=== PATIENT | male | born 1970 | race Two or more races ===

== ENCOUNTER 2018-12-14 20:35 | Emergency (ER) | payer SELFPAY ==
[2018-12-14 20:41] VITALS: BMI 38.0
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
[2018-12-14 22:31] LABS: BASO # 0.01 K/mm3 (0.0-2.0); BASO % 0.2 % (0.0-3.0); EOS % 0.2 % (1.5-5.0); HEMOGLOBIN 9.5 g/dL (14.0-18.0); LYMPH # 0.7 (1.2-3.4); MEAN CELL VOLUME 70.2 fl (80.0-105.0); MEAN CORPUSCULAR HEMOGLOBIN 21.9 pg (25.0-35.0); MEAN CORPUSCULAR HGB CONC 31.3 g/dl (31.0-37.0); MEAN PLATELET VOLUME 7.9 fl (7.0-11.0); MONO # 0.4 (0.1-0.6); MONO % 6.7 % (1.0-6.0); RBC 4.33 10^6/uL (3.5-6.1); RED CELL DISTRIBUTION WIDTH 22.7 % (11.5-14.5)
[2018-12-14 22:39] LABS: INR 1.03; PROTHROMBIN TIME 11.4 SECONDS (9.4-12.5)
[2018-12-14 22:41] LABS: ALT/SGPT 17 U/L (7-56); AST/SGOT 90 U/L (17-59); BLOOD UREA NITROGEN 9 mg/dL (7-21); CALCIUM 8.7 mg/dL (8.4-10.5); GFR NON-AFRICAN AMERICAN > 60
[2018-12-14 22:52] LABS: TROPONIN I < 0.01 ng/mL
[2018-12-15 05:19] VITALS: BP 148/85; PULSE 88; RESP 19; TEMP 99.7; O2SAT 99
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
--- NOTE | 2018-12-15 14:19 | RAD ---
Date of service: 12/14/2018 HISTORY: pain COMPARISON: None available. TECHNIQUE: 1 view obtained. FINDINGS: LUNGS: Minor bibasilar atelectasis. PLEURA: No significant pleural effusion identified, no pneumothorax apparent. CARDIOVASCULAR: No aortic atherosclerotic calcification present. Normal cardiac size. No pulmonary vascular congestion. OSSEOUS STRUCTURES: Mild multilevel degenerative osteoarthritis thoracic spine. VISUALIZED UPPER ABDOMEN: Normal. OTHER FINDINGS: None. IMPRESSION: . Minor bibasilar atelectasis
--- NOTE | 2018-12-16 07:17 | CARD ---
APPROVED REPORT Date of service: 12/14/2018 EKG Measurement Heart [id number] <Conclusion> Normal sinus rhythm Normal ECG
== END 2018-12-15 07:16 | disposition home or self-care (01) ==
LOC: ED 20:35 → EDBD 20:35 → ED 12-15 07:16
DX: S09.90XA Unspecified injury of head, initial encounter (principal); V03.90XA Pedestrian on foot injured in collision with car, pick-up truck or van, unspecified whether traffic or nontraffic accident, initial encounter; Y92.410 Unspecified street and highway as the place of occurrence of the external cause; F10.10 Alcohol abuse, uncomplicated; Y90.6 Blood alcohol level of 120-199 mg/100 ml
CPT/HCPCS: 70450; 71045; 72125; 80053; 84484; 85025; 85610; 85730; 93005; 99285; G0480

== ENCOUNTER 2018-12-27 23:53 | Emergency (ER) | payer SELFPAY ==
[2018-12-27 23:54] VITALS: BMI 38.0
[2018-12-28 00:09] VITALS: TEMP 97; O2SAT 99
--- NOTE | 2018-12-28 00:11 | ED PDOC ---
Arrival/HPI - General Chief Complaint: Alcohol Ingestion Time Seen by Provider: 12/28/18 00:00 Historian: Patient - History of Present Illness Narrative History of Present Illness (Text): 12/28/18 00:10 Eder Garcia is a 58 year old male, whose past medical history includes alcohol abuse, who presents to the ED brought in by EMS for public intoxication. Patient was found outside inebriated and admits to drinking alcohol tonight. Patient denies any fever, chills, chest pain, shortness of breath, nausea, vomiting, diarrhea, urinary symptoms, back pain, neck pain, headache, dizziness, or any other complaints. Symptom Onset: Gradual Symptom Course: Unchanged Activities at Onset: Light Context: Home Past Medical History - Provider Review Nursing Documentation Reviewed: Yes - Infectious Disease Hx of Infectious Diseases: None - Cardiac Hx Cardiac Disorders: No - Pulmonary Hx Respiratory Disorders: No - Psychiatric Hx Substance Use: No - Anesthesia Hx Anesthesia: No Hx Anesthesia Reactions: No Hx Malignant Hyperthermia: No Family/Social History - Physician Review Nursing Documentation Reviewed: Yes Family/Social History: Unknown Family HX Smoking Status: Never Smoked Hx Alcohol Use: Yes Frequency of alcohol use: Daily Hx Substance Use: No Allergies/Home Meds Allergies/Adverse Reactions: Allergies Penicillins Adverse Reaction (Verified 12/28/18 00:02) RASH Home Medications: Home Meds Medication Instructions Recorded Confirmed No Known Home Med 12/28/18 12/28/18 Review of Systems - Physician Review All systems were reviewed & negative as marked: Yes - Review of Systems Constitutional: Normal. absent: Fevers Eyes: Normal ENT: Normal Respiratory: Normal. absent: SOB, Cough Cardiovascular: Normal. absent: Chest Pain Gastrointestinal: Normal. absent: Abdominal Pain, Diarrhea, Nausea, Vomiting Genitourinary Male: Normal. absent: Dysuria, Frequency, Hematuria, Urinary Output Changes Musculoskeletal: Normal. absent: Back Pain, Neck Pain Skin: Normal. absent: Rash Neurological: Normal. absent: Headache, Dizziness Endocrine: Normal Hemo/Lymphatic: Normal Psychiatric: Other (+alcohol intoxication) Physical Exam Vital Signs Reviewed: Yes Vital Signs Temp Pulse Resp BP Pulse Ox 12/28/18 00:08 97.0 F L 90 18 111/71 99 Temperature: Afebrile Blood Pressure: Normal Pulse: Regular Respiratory Rate: Normal Appearance: Positive for: Well-Appearing, Non-Toxic, Comfortable Pain Distress: None Mental Status: Positive for: other (Intoxicated) - Systems Exam Head: Present: Atraumatic, Normocephalic Pupils: Present: PERRL Extroacular Muscles: Present: EOMI Conjunctiva: Present: Normal Mouth: Present: Moist Mucous Membranes Neck: Present: Normal Range of Motion Respiratory/Chest: Present: Clear to Auscultation, Good Air Exchange. No: Respiratory Distress, Accessory Muscle Use Cardiovascular: Present: Regular Rate and Rhythm, Normal S1, S2. No: Murmurs Abdomen: No: Tenderness, Distention, Peritoneal Signs Back: Present: Normal Inspection Upper Extremity: Present: Normal Inspection. No: Cyanosis, Edema Lower Extremity: Present: Normal Inspection. No: Edema Neurological: Present: GCS=15, CN II-XII Intact, Speech Normal Skin: Present: Warm, Dry, Normal Color. No: Rashes Psychiatric: Present: Intoxicated Medical Decision Making ED Course and Treatment: 12/28/18 00:11 Impression: 58 year old male brought in for alcohol intoxication. Plan: -- Reassess and disposition Prior Visits: Notes and results from previous visits were reviewed. Progress Notes: - Scribe Statement The provider has reviewed the documentation as recorded by the Isael Pham Provider Scribe Attestation: All medical record entries made by the Scribe were at my direction and personally dictated by me. I have reviewed the chart and agree that the record accurately reflects my personal performance of the history, physical exam, medical decision making, and the department course for this patient. I have also personally directed, reviewed, and agree with the discharge instructions and dis position. Disposition/Present on Arrival - Present on Arrival Any Indicators Present on Arrival: No History of DVT/PE: No History of Uncontrolled Diabetes: No Urinary Catheter: No History of Decub. Ulcer: No History Surgical Site Infection Following: None - Disposition Have Diagnosis and Disposition been Completed?: Yes Diagnosis: Alcohol intoxication Disposition: HOME/ ROUTINE Disposition Time: 06:45 Patient Plan: Discharge Condition: GOOD Referrals: Alcoholics Anonymous [Outside] - Follow up with primary Forms: [employer] (Kyrgyz)
[2018-12-28 06:46] VITALS: BP 132/67; PULSE 78; RESP 17
== END 2018-12-28 06:45 | disposition home or self-care (01) ==
LOC: ED 23:53
DX: F10.129 Alcohol abuse with intoxication, unspecified (principal)

== ENCOUNTER 2018-12-29 18:18 | Emergency (ER) | payer SELFPAY ==
[2018-12-29 18:18] VITALS: BMI 38.0
[2018-12-29 18:28] VITALS: TEMP 97.5
--- NOTE | 2018-12-29 18:46 | ED PDOC ---
Arrival/HPI - General Chief Complaint: Alcohol Ingestion Time Seen by Provider: 12/29/18 18:35 Historian: Patient EM Caveat: Intoxicated - History of Present Illness Narrative History of Present Illness (Text): 12/29/18 18:44 58 year old male, with PMH of alcohol abuse, presents to the ED for public intoxication. Patient admits to drinking alcohol tonight. Patient denies any fever, chest pain, shortness of breath, nausea, vomiting, headache, dizziness, trauma or injury. *HPI and ROS is limited due to patient being intoxicated. Past Medical History - Infectious Disease Hx of Infectious Diseases: None - Cardiac Hx Cardiac Disorders: No - Pulmonary Hx Respiratory Disorders: No - Psychiatric Hx Substance Use: No - Anesthesia Hx Anesthesia: No Hx Anesthesia Reactions: No Hx Malignant Hyperthermia: No Family/Social History Family/Social History: Unknown Family HX Smoking Status: Never Smoked Hx Alcohol Use: Yes Frequency of alcohol use: Daily Hx Substance Use: No Allergies/Home Meds Allergies/Adverse Reactions: Allergies Penicillins Adverse Reaction (Verified 12/28/18 00:02) RASH Home Medications: Home Meds Medication Instructions Recorded Confirmed No Known Home Med 12/28/18 12/28/18 Review of Systems - Review of Systems Systems not reviewed;Unavailable: Intoxicated Physical Exam Vital Signs Temp Pulse Resp BP Pulse Ox 12/29/18 18:28 97.5 F L 98 H 18 125/75 98 Temperature: Afebrile Blood Pressure: Normal Pulse: Regular Respiratory Rate: Normal Appearance: Positive for: Well-Appearing, Non-Toxic, Comfortable, Unkept, Other (+strong odor of alcohol) Pain Distress: None Finger Stick Blood Glucose: 213 - Systems Exam Head: Present: Atraumatic, Normocephalic Pupils: Present: PERRL Extroacular Muscles: Present: EOMI Conjunctiva: Present: Normal, Other (+pterygium noted to b/l eyes) Mouth: Present: Moist Mucous Membranes Neck: Present: Normal Range of Motion. No: MIDLINE TENDERNESS Respiratory/Chest: Present: Clear to Auscultation, Good Air Exchange. No: Respiratory Distress, Accessory Muscle Use Cardiovascular: Present: Regular Rate and Rhythm, Normal S1, S2. No: Murmurs Abdomen: No: Tenderness, Distention, Peritoneal Signs Back: Present: Normal Inspection Upper Extremity: Present: Normal Inspection. No: Cyanosis, Edema Lower Extremity: Present: Normal Inspection. No: Edema Neurological: Present: GCS=15, CN II-XII Intact Skin: Present: Warm, Dry, Normal Color. No: Rashes Psychiatric: Present: Alert Medical Decision Making ED Course and Treatment: 12/29/18 18:42 58 year old male brought in for alcohol intoxication. Plan: -- FS -- Observation in the ER until clinically sober -- Reassess and disposition Prior Visits: Notes and results from previous visits were reviewed. Progress Notes: FS 213 12/30/18 00:03 Patient was observed by RADIO INTERFERENCE TROUBLE SHOOTER to have gotten up and out of bed on his own and ambulated to the bathroom 2x with a steady gait. He asked for water and is tolerating po fluids. Otherwise the patient is speaking in full sentences no tremors and has a steady gait. He is safe and stable for d/c. - PA / GMAT TUTOR / Resident Statement / has reviewed & agrees with the documentation as recorded. Disposition/Present on Arrival - Present on Arrival Any Indicators Present on Arrival: No History of DVT/PE: No History of Uncontrolled Diabetes: No Urinary Catheter: No History of Decub. Ulcer: No History Surgical Site Infection Following: None - Disposition Have Diagnosis and Disposition been Completed?: Yes Diagnosis: Alcohol intoxication Disposition: HOME/ ROUTINE Disposition Time: 00:00 Patient Plan: Discharge Patient Problems: Current Active Problems Problem Status Onset Alcohol intoxication Acute Condition: STABLE Discharge Instructions (ExitCare): Alcohol Use - When Is Drinking a Problem? Forms: [employer] (Kyrgyz)
[2018-12-30 04:22] VITALS: BP 134/66; PULSE 91; RESP 13; O2SAT 100
== END 2018-12-30 04:22 | disposition home or self-care (01) ==
LOC: ED 18:18
DX: F10.129 Alcohol abuse with intoxication, unspecified (principal)